=== PATIENT | female | born 1985 | race Caucasian/White ===

== ENCOUNTER 2016-11-05 18:01 | Day surgery (SDC) | payer MEDICAID ==
--- NOTE | 2016-11-05 18:44 | ERNOTE ---
Medical Problem HPI - Narrative Date of Service: 11/05/16 - General Chief Complaint: General Assessment Time Seen by Provider: 11/05/16 18:19 Source: patient, RN/MD, RN notes reviewed Exam Limitations: no limitations - Immun/Allergies/Home Medications Immunizations: IMMUNIZATION HX Immunizations Up to Date Yes History of Influenza Vaccine No Hx Pneumococcal Vaccination No Allergies/Adverse Reactions: Allergies No Known Allergies Allergy (Verified 03/17/16 08:10) Home Medications: HOME MEDICATIONS [place] 11/05/16 [Last Taken Unknown] - History of Present History Narrative: Irish is a 31 year old female who presents to the ED by private vehicle with a possible ectopic . She had an outpatient ultrasound today. Dr. Shaw was contacted regarding the abnormal results. The patient was directed to come here to be seen by him. She is having lower abdominal/pelvic pain that is worse on the left side. Review of Systems - Review of Systems Constitutional: Present: malaise. Absent: recent illness, fever, chills EYE: Present: no symptoms reported ENT: Absent: nose congestion, nasal drainage, sore throat Respiratory: Absent: shortness of breath, cough Cardiology: Absent: chest pain, syncope Gastrointestinal/Abdominal: Present: abdominal pain. Absent: nausea, vomiting, diarrhea, constipation Genitourinary: Absent: dysuria, hematuria, discharge, other Musculoskeletal: Absent: back pain Skin: Absent: rash, lesions Neurological: Absent: headache, dizziness/light-headedness Endocrine: Present: no symptoms reported Hematologic/Lymphatic: Absent: easy bruising, easy bleeding Psych: Present: no symptoms reported - Patient's Past Medical History Patient History - Medical: UTI'S Patient History - Cardiac/Respiratory: No pertinent hx Patient History - Cancer: No Hx of Cancer Patient History - Surgical Procedures: Ear Tubes, T & A, Other - Ectopic Patient History - Other: None LMP (Calendar): 09/22/16 - Family History Mother Family History - Medical: No pertinent hx Family History - Cardiac/Respiratory: COPD Father Family History - Medical: No pertinent hx Family History - Cardiac/Respiratory: Hypertension Brother Family History - Medical: Other Family History - Cardiac/Respiratory: Asthma Grandfather-Paternal Family History - Medical: , No pertinent hx Family History - Cardiac/Respiratory: No pertinent hx Grandmother-Maternal Family History - Medical: Diabetes Type 2 Family History - Cardiac/Respiratory: No pertinent hx - Social History Living Situations: home Abuse History: No History of abuse Psych History: No pertinent hx Smoking Status: Never smoker Alcohol Use: none Drug Use: none - Immunizations Immunizations Up to Date: Yes Hx Pneumococcal Vaccination: No History of Influenza Vaccine: No Physical Exam - Physical Exam General Appearance: Present: wd/wn, alert, no apparent distress Neck: Present: normal inspection, nontender, supple Respiratory: Present: no respiratory distress, normal breath sounds, no accessory muscle use, lungs clear Cardiovascular/Chest: Present: regular rate, rhythm, no murmur, normal peripheral pulses Gastrointestinal/Abdominal: Present: nondistended, soft, tenderness - lower abdomen, worse on left Extremity Exam: Present: normal inspection, no edema, normal range of motion Neurological Exam: Present: alert, oriented, normal mood/affect, no motor/ sensory deficits Skin Exam: Present: normal color, warm/dry ED Progress - Results and Orders Patient's Lab Results:: I have reviewed the patient's lab results. Results and Orders: CBC and HCG quant done earlier today in [place] - Vital Signs Patient's Vital Signs:: I have reviewed the patient's vital signs. Vital Signs: Vital Signs 11/05/16 11/05/16 18:06 18:16 Temperature 36.7 C Pulse Rate 120 H 131 H Respiratory 14 Rate Blood Pressure 132/77 137/70 O2 Sat by Pulse 99 Oximetry - Progress/Reassessment Chief Complaint: General Assessment Progress:: Unchanged Plan - Plan Plan: Dr. Shaw here to see patient. Consent obtained. Patient to go to OR. Departure - Departure Clinical Impression: Adnexal mass, Pelvic pain in female Disposition: [facility] Condition: Stable Referrals: Garrison Shaw DO [Primary Care Provider] -
--- OUTSIDE RECORDS SUMMARY | 2016-11-05 18:48 | XMS REPORT | Continuity of Care Document ---
:1985 Author Organization [facility] ([facility]) Address [address] [place] [address] Phone [phone] Care Team Providers Name Role Phone Felipa Delgadillo Primary Care Provider [phone] Source Comments This disclosure is being made pursuant to the Care Everywhere program, applicable federal and state laws, and may not contain all informaitonavailable regarding this patient.[facility] ([facility]) Active Allergies and Adverse Reactions No Known Allergies Current Medications Prescription Sig. Disp. Refills Start Date End Date Status HYDROcodone-acetamin Take 1 tablet by 20 tablet 0 09/09/2015 Active ophen 5-325 mg per mouth every 4 hours tablet as needed for Pain DO NOT EXCEED 3,000 MG ACETAMINOPHEN PER DAY FROM ALL SOURCES ibuprofen 800 mg Take 1 tablet (800 20 tablet 0 09/09/2015 Active tablet mg total) by mouth every 6 hours as needed for Pain DO NOT EXCEED 3,200 MG IBUPROFEN PER DAY FROM ALL SOURCES chlorhexidine 0.12 % Rinse with 10 ML for 473 mL 0 09/09/2015 Active oral rinse 30 seconds twice daily for 10 days. Swish and spit out excess. Nothing by mouth for 30 minutes. Active Problems Problem Noted Date Impacted teeth with abnormal position 09/09/2015 Social History Tobacco Use Types Packs/Day Years Used Date Never Smoker Smokeless Tobacco: Never Used Last Filed Vital Signs Vital Sign Reading Time Taken Blood Pressure 97/74 09/09/2015 3:40 PM SURGICAL INSTRUMENT REPAIR SPECIALIST Pulse 82 09/09/2015 2:14 PM SURGICAL INSTRUMENT REPAIR SPECIALIST Temperature 36.9 C (98.4 F) 09/09/2015 2:14 PM SURGICAL INSTRUMENT REPAIR SPECIALIST Respiratory Rate 15 09/09/2015 2:14 PM SURGICAL INSTRUMENT REPAIR SPECIALIST Height 1.676 m (5' 5.98") 09/09/2015 2:14 PM SURGICAL INSTRUMENT REPAIR SPECIALIST Weight 78.2 kg (172 lb 6.4 oz) 09/09/2015 2:14 PM SURGICAL INSTRUMENT REPAIR SPECIALIST Body Mass Index 27.84 09/09/2015 2:14 PM SURGICAL INSTRUMENT REPAIR SPECIALIST Oxygen Saturation 100% 09/09/2015 3:40 PM SURGICAL INSTRUMENT REPAIR SPECIALIST Plan of Care Health Maintenance Due Date Last Done Comments Hepatitis B Vaccine (1 of 3 - Primary Series) 1985 Tdap Vaccine 1996 Lipid Disorder Screening 2003 MMR Vaccine 2003 Td Vaccine 2003 Varicella Vaccine (1 of 2 - Adult - No Evidence of 2003 Immunity) Cervical Cancer Screening 2015 Influenza Vaccine: Seasonal (#1) 04/27/2016 Results from Last 3 Months Not on file
[2016-11-05] MEDS: RINGERS SOLUTION,LACTATED 1,000 ML IV PRN ×3 (19:17→23:38)
--- OUTSIDE RECORDS SUMMARY | 2016-11-05 19:41 | XMS REPORT | Continuity of Care Document ---
:1985 Author Organization [facility] ([place]) Address [address] [place] [address] Phone [phone] Care Team Providers Name Role Phone Felipa Delgadillo Primary Care Provider [phone] Source Comments This disclosure is being made pursuant to the Care Everywhere program, applicable federal and state laws, and may not contain all informaitonavailable regarding this patient.[facility] ([place]) Active Allergies and Adverse Reactions No Known [...] Taken Blood Pressure 97/74 09/09/2015 3:40 PM OPTOMETRY PROFESSOR Pulse 82 09/09/2015 2:14 PM OPTOMETRY PROFESSOR Temperature 36.9 C (98.4 F) 09/09/2015 2:14 PM OPTOMETRY PROFESSOR Respiratory Rate 15 09/09/2015 2:14 PM OPTOMETRY PROFESSOR Height 1.676 m (5' 5.98") 09/09/2015 2:14 PM OPTOMETRY PROFESSOR Weight 78.2 kg (172 lb 6.4 oz) 09/09/2015 2:14 PM OPTOMETRY PROFESSOR Body Mass Index 27.84 09/09/2015 2:14 PM OPTOMETRY PROFESSOR Oxygen Saturation 100% 09/09/2015 3:40 PM OPTOMETRY PROFESSOR Plan of Care Health Maintenance Due Date [...]
[2016-11-05] MEDS ORDERED: LIDOCAINE HCL/EPINEPHRINE 50 ML VIAL IJ ONE ×2 (20:10)
[2016-11-05] MEDS ORDERED: RINGERS SOLUTION,LACTATED 1,000 ML IV ONE (20:30)
[2016-11-05] MEDS ORDERED: ONDANSETRON HCL/PF 2 MG/ML VIAL IV PRN (22:36)
[2016-11-05] MEDS ORDERED: PROMETHAZINE HCL 12.5 MG in DEXTROSE 5 % IN WATER 50 ML IV PRN ×2 (22:36)
[2016-11-05] MEDS ORDERED: NALOXONE HCL 0.4 MG/ML VIAL IV PRN (22:36)
[2016-11-05] MEDS ORDERED: diphenhydrAMINE HCL 50 MG/ML VIAL IV PRN (22:36)
[2016-11-05] MEDS ORDERED: HYDROmorphone HCL 2 MG/ML VIAL IV PRN (22:36)
--- NOTE | 2016-11-05 23:26 | OR ---
Operative Report - Dictated Report Narrative: DATE OF PROCEDURE: 11/05/2016 INDICATION: 31-year-old 4 para 1031 presents to the [facility] emergency room with right ectopic diagnosed at [facility] today. She presented with elevated HCG level, pelvic pain, vaginal bleeding, and right adnexal mass found on ultrasound at [facility]. PREOPERATIVE DIAGNOSIS: Right ectopic POSTOPERATIVE DIAGNOSIS: Same with extensive pelvic adhesive disease PROCEDURE: Diagnostic laparoscopy, right salpingectomy, extensive lysis of pelvic adhesions SURGEON: Suman Shaw D.O. GREEN CHAIN WORKER: None ANESTHESIA: Gen. ESTIMATED BLOOD LOSS: Minimal URINE OUTPUT: 800 mL FLUID REPLACEMENT: 1800 mL FINDINGS: Hemoperitoneum with extensive omental and bowel adhesions to the pelvic organs. Extensive tubo-ovarian adhesions bilaterally. Right hemosalpinx -the distal third of the tube was ruptured with adherent clot and gestational sac. The left fallopian tube and ovary were adherent to the pelvic sidewall with omentum and the distal colon wrapped around the tubo-ovarian complex. SPECIMEN(S): 1. Right fallopian tube with ectopic 2. Endometrial curettings from suction curettage TECHNIQUE: The patient was taken to the operating room and placed in dorsal lithotomy position after adequate general anesthesia was obtained and SCDs placed. The anterior lip of the cervix was grasped with a long Allis clamp and a Valchev manipulator was inserted into the cervical canal and attached to the Allis clamp as a means to manipulate the uterus. Jacques catheter was placed to gravity drainage. Gloves were changed and attention was turned to the abdomen where the umbilicus was injected with a 1% lidocaine epinephrine solution through the underlying layers of the abdomen wall. Scalpel was used to score the skin and a 12 mm non-bladed trocar was inserted via direct technique under direct visualization. Pneumoperitoneum was created with CO2 gas. Hemoperitoneum was noted upon entry. 2 additional 5 mm non-bladed trochars were placed in the left lower quadrant and suprapubically in a similar fashion to the umbilical trocar. Through these 3 ports the surgery was carried out with findings as noted above. Using the Sonic beat, adhesions were taken down to allow visualization of the pelvic organs. The right fallopian tube was surrounded with a large amount of clots and adhesions. Once freed, the tube and ectopic were placed in the anterior cul-de-sac to be removed at a later time. The left tube and ovary were freed from their adhesions using the Sonic beat. Filmy bandlike adhesions of the descending colon and descending colon were freed from the abdominal sidewall. 9 L of warm saline were used to irrigate the pelvis. Excellent hemostasis was noted. The trochars were removed under direct visualization after removing the CO2 gas. The fascia of the 12 mm port was closed with a single interrupted 0 Vicryl suture and the subdermal layer of all incisions was closed with 4-0 Monocryl. The skin of all incisions was closed with Exophin adhesive dressing. Attention was turned to the pelvis where the catheter and Valchev manipulator were removed. A paracervical block was given using 10 mL of 1% lidocaine with epinephrine. A # 7 curved suction curet was placed into the uterine cavity. 3 passes were made with the suction curet, removing only a small amount of tissue which was collected and sent to pathology. All instruments were removed from the cervix and vagina. Sponge, lap, instrument, and needle count were correct x 2. DISPOSITION: The patient was transferred to post anesthesia care unit in good condition.
[2016-11-05] MEDS ORDERED: ONDANSETRON HCL/PF 2 MG/ML VIAL ONE (23:30)
[2016-11-06] MEDS ORDERED: oxyCODONE HCL/ACETAMINOPHEN 1 TAB TABLET ONE (01:56)
[2016-11-06] MEDS ORDERED: IBUPROFEN 800 MG TABLET ONE (01:56)
[2016-11-06] MEDS ORDERED: oxyCODONE HCL/ACETAMINOPHEN 1 TAB TABLET PO ONE (02:01)
[2016-11-06] MEDS ORDERED: IBUPROFEN 800 MG TABLET PO ONE (02:03)
[2016-11-06 02:23] VITALS: BP 127/74
== END 2016-11-05 19:36 | disposition home or self-care (01) ==
LOC: ER 18:01 → AMB 19:35
PROVIDERS: ATTEND Obstetrics & Gynecology
PROC: 10T24ZZ Resection of Products of Conception, Ectopic, Percutaneous Endoscopic Approach (ICD-10-PCS; 2016-11-05)
PROC: 0UB54ZZ Excision of Right Fallopian Tube, Percutaneous Endoscopic Approach (ICD-10-PCS; 2016-11-05)
PROC: 0UDB7ZX Extraction of Endometrium, Via Natural or Artificial Opening, Diagnostic (ICD-10-PCS; 2016-11-05)
PROC: 0DNM4ZZ Release Descending Colon, Percutaneous Endoscopic Approach (ICD-10-PCS; principal; 2016-11-05 19:04)
PROC: 0DNS4ZZ (ICD-10-PCS; 2016-11-05 19:04)
DX: O00.10 Tubal pregnancy without intrauterine pregnancy (principal); Z68.30 Body mass index [BMI] 30.0-30.9, adult